=== PATIENT | female | born 1985 | race Caucasian/White ===

== ENCOUNTER 2017-08-26 08:51 | Emergency (ER) | END 2017-08-26 09:48 | disposition home or self-care (01) ==

== ENCOUNTER 2018-07-01 23:22 | Emergency (ER) | payer MEDICAID, OTHER ==
[~2018-07-01] VITALS: Ht 157.5 cm; Wt 60.8 kg
[~2018-07-01 23:22] MED LIST: POLY10DR19 LEFT EYE
[2018-07-01 23:31] VITALS: BP 110/56; PULSE 72; RESP 18; Ht 157.5 cm; Wt 60.8 kg
[2018-07-02] MEDS ORDERED: PHEN-537 PO (02:00)
--- NOTE | 2018-07-02 02:09 | ERD ---
ER Documentation Chief Complaint Chief Complaint painful/burning urination x 1 day. seen at clinic today. on atb HPI Patient is a 32-year-old female presents the ER for concerns of dysuria, frequency and urgency x1 day. Patient was seen at her primary care physician's office and diagnosed with UTI. Patient was given prescription for Keflex. She states her dysuria has become worse that she presents to the ER tonight. She denies any fevers or chills. She denies any flank pain or hematuria. Patient denies any abdominal surgeries. ROS All systems reviewed and are negative except as per history of present illness. Medications Home Meds Active Scripts Phenazopyridine Hcl* (Pyridium*) 100 Mg Tab, 100 MG PO TID PRN for URINARY PAIN, #8 TAB Prov:RALEIGH PEREZ PA-C 07/02/18 Polymyxin B Sulfate-TMP* (Polymyxin B-TMP Eye Drops*) 10 Ml Drops, 1 DROP LEFT EYE QID for 7 Days, #1 EA Prov:RALEIGH PEREZ PA-C 08/26/17 Allergies Allergies: Coded Allergies: No Known Allergy (Unverified , 08/26/17) PMhx/Soc Medical and Surgical Hx: pt denies Medical Hx, pt denies Surgical Hx History of Surgery: No Anesthesia Reaction: No Hx Neurological Disorder: No Hx Respiratory Disorders: No Hx Cardiac Disorders: No Hx Psychiatric Problems: No Hx Alcohol Use: No Hx Substance Use: No Hx Tobacco Use: No Smoking Status: Never smoker FmHx Family History: No diabetes Physical Exam Vitals Vital Signs Date Temp Pulse Resp B/P (MAP) Pulse Ox O2 O2 Flow FiO2 Time Delivery Rate 07/01/18 97.8 72 18 110/56 98 23:31 (74) Physical Exam GENERAL: Well-developed, well-nourished female. Appears in no acute distress. HEAD: Normocephalic, atraumatic. EYES: Pupils are equally reactive bilaterally. EOMs grossly intact. No conjunctival erythema. ENT: Moist mucous membranes. No uvula deviation. No kissing tonsils. NECK: Supple. No meningismus. Normal range of motion of the neck. LUNG: Clear to auscultation bilaterally. No rhonchi, wheezing, rales or coarse breath sounds. HEART: Regular rate and rhythm. No murmurs, rubs or gallops. ABDOMEN: Soft, nontender, and nondistended. Positive bowel sounds in all four quadrants. No rebound tenderness, no guarding. (-) McBurney's point tenderness. No CVA tenderness. BACK: No midline tenderness. EXTREMITIES: Equal pulses bilaterally. No peripheral clubbing, cyanosis or edema. No unilateral leg swelling. NEUROLOGIC: Alert and oriented. Moving all four extremities without any difficulty. Normal speech. Steady gait. SKIN: Normal color. Warm and dry. No rashes or lesions. Results 24 hrs Laboratory Tests Test 07/02/18 01:32 Bedside Urine pH (LAB) 5.5 Bedside Urine Protein (LAB) 2+ Bedside Urine Glucose (UA) 0.1% Bedside Urine Ketones (LAB) 1+ Bedside Urine Blood Trace-intact Bedside Urine Nitrite (LAB) Positive Bedside Urine Leukocyte Esterase (L 3+ Procedures/MDM MEDICAL DECISION MAKING: This is a 32-year-old female presents the ER for concerns of UTI symptoms x1 day. Patient states her dysuria has become more so she presents the ER. Patient was diagnosed with UTI primary care physician's office earlier today and started on Keflex.. Vital signs were reviewed. Patient was afebrile. UA did show concerns of UTI.. Urine was negative. Patient was advised to continue taking Keflex. Patient will also be given prescription for Pyridium to help with her dysuria. Low suspicion for pyelonephritis, nephrolithiasis, appendicitis, diverticulitis, constipation, ectopic , PID, ovarian torsion, or tubo-ovarian abscess. PRESCRIPTIONS: Pyridium DISCHARGE: At this time, patient is stable for discharge and outpatient management. I have instructed the patient to follow-up with his/her primary care physician in 1-2 days. Patient should repeat UA in 2 weeks to check for resolution of urinary tract infection. If symptoms persist, patient may need to see a specialist for further examinations and testing. I have instructed the patient to promptly return to the ER at any time for any new or worsening symptoms including i ncreased pain, fever, nausea, vomiting, urinary changes or weakness. The patient and/or family expressed understanding of and agreement with this plan. All questions were answered. Home care instructions were provided. Disclaimer: Inadvertent spelling and grammatical errors are likely due to EHR/dictation software use and do not reflect on the overall quality of patient care. Also, please note that the electronic time recorded on this note does not necessarily reflect the actual time of the patient encounter. Departure Diagnosis: Primary Impression: UTI (urinary tract infection) Urinary tract infection type: site unspecified Hematuria presence: without hematuria Qualified Codes: N39.0 - Urinary tract infection, site not specified Condition: Fair Patient Instructions: Understanding Urinary Tract Infections (UTIs) Referrals: [facility] YOU HAVE RECEIVED A MEDICAL SCREENING EXAM AND THE RESULTS INDICATE THAT YOU DO NOT HAVE A CONDITION THAT REQUIRES URGENT TREATMENT IN THE EMERGENCY DEPARTMENT. FURTHER EVALUATION AND TREATMENT OF YOUR CONDITION CAN WAIT UNTIL YOU ARE SEEN IN YOUR DOCTORS OFFICE WITHIN THE NEXT 1-2 DAYS. IT IS YOUR RESPONSIBILITY TO MAKE AN APPOINTMENT FOR FOLOW-UP CARE. IF YOU HAVE A PRIMARY DOCTOR --you should call your primary doctor and schedule an appointment IF YOU DO NOT HAVE A PRIMARY DOCTOR YOU CAN CALL OUR PHYSICIAN REFERRAL HOTLINE AT IF YOU CAN NOT AFFORD TO SEE A PHYSICIAN YOU CAN CHOSE FROM THE FOLLOWING [facility] [address] [facility]. [facility] [address] [facility] [address] [facility] [address] [facility] [facility] [address] [facility]. [facility]. [address] [facility]. [facility] YOU HAVE RECEIVED A MEDICAL SCREENING EXAM AND THE RESULTS INDICATE THAT YOU DO NOT HAVE A CONDITION THAT REQUIRES URGENT TREATMENT IN THE EMERGENCY DEPARTMENT. FURTHER EVALUATION AND TREATMENT OF YOUR CONDITION CAN WAIT UNTIL YOU ARE SEEN IN YOUR DOCTORS OFFICE WITHIN THE NEXT 1-2 DAYS. IT IS YOUR RESPONSIBILITY TO MAKE AN APPOINTMENT FOR FOLOW-UP CARE. IF YOU HAVE A PRIMARY DOCTOR --you should call your primary doctor and schedule and appointment IF YOU DO NOT HAVE A PRIMARY DOCTOR YOU CAN CALL OUR PHYSICIAN REFERRAL HOTLINE AT . IF YOU CAN NOT AFFORD TO SEE A PHYSICIAN YOU CAN CHOSE FROM THE FOLLOWING [facility] INSTITUTIONS: [facility] [address] [place] [address] [facility] [address] [place] [address] [facility] [address] [place] [address] Additional Instructions: Continue Keflex. Call your primary care doctor TOMORROW for an appointment during the next 1-2 days.See the doctor sooner or return here if your condition worsens before your appointment time. RALEIGH PEREZ PA-C July 02, 2018 02:09
== END 2018-07-02 02:15 | disposition home or self-care (01) ==
LOC: FTE 23:22
DX: N39.0 Urinary tract infection, site not specified (principal)
CPT/HCPCS: 81003; 81025; Z7502; 99282

== ENCOUNTER 2018-10-16 18:48 | Emergency (ER) | payer MEDICAID ==
[~2018-10-16] VITALS: Ht 157.5 cm; Wt 61.4 kg
[~2018-10-16 18:48] MED LIST changes: +ACET325T33 PO; +BEN25 PO; +DOXY25TA33 PO; +METO10TA92 PO; +PHEN-537 PO; +PYRI25TA3 PO; +RANI150T35 PO
[2018-10-16 19:09] VITALS: Ht 157.5 cm; Wt 61.4 kg
[2018-10-16] MEDS ORDERED: morphine 2 MG INJ IV STA (19:30)
[2018-10-16] MEDS ORDERED: ACETAMINOPHEN 325 MG TAB PO STA (19:30)
[2018-10-16] MEDS ORDERED: SOD CHLORIDE 0.9% 1,000 ML IV STA (19:30)
[2018-10-16] MEDS ORDERED: ONDANSETRON 4 MG INJ IV STA (19:30)
[2018-10-16 22:08] VITALS: BP 116/68; PULSE 69; RESP 17
== END 2018-10-16 22:08 | disposition home or self-care (01) ==
LOC: FTE 18:48
DX: O99.611 Diseases of the digestive system complicating pregnancy, first trimester (principal); K80.20 Calculus of gallbladder without cholecystitis without obstruction; Z3A.10 10 weeks gestation of pregnancy
CPT/HCPCS: 36415; 76705; 76801; 80053; 81001; 85025; 96361; 96374; 96375; J2270; J2405; J7030; Z7502; Z7610